=== PATIENT | female | born 1990 | race American Indian/Alaskan Native ===

== ENCOUNTER 2018-08-06 11:00 | Outpatient (CLI) | payer MEDICAID | END 2018-08-06 11:01 | disposition home or self-care (01) | LOC: SLR 11:00 | PROVIDERS: ATTEND Otolaryngology | DX: G47.30 Sleep apnea, unspecified (principal) | CPT/HCPCS: G0399 ==

== ENCOUNTER 2019-03-03 07:27 | Inpatient (IN) | payer MEDICAID ==
--- NOTE | 2019-02-27 14:21 | Anesthesia Consultation ---
Anesthesia Consult and Med Hx Date of service: 03/03/19 - Airway Anesthetic Teeth Evaluation: Chipped ROM Head & Neck: Adequate Mental/Hyoid Distance: Adequate Mallampati Class: Class II Intubation Access Assessment: Good - Pre-Operative Health Status ASA Pre-Surgery Classification: ASA3 Proposed Anesthetic Plan: General - Pulmonary Hx Smoking: Yes (Hookah occasionally) Hx Asthma: Yes (As a child) Hx Respiratory Symptoms: No - Cardiovascular System Hx Hypertension: No (+Cardiac clearance. +ECHO/ETT) - Central Nervous System Hx Neuromuscular Disorder: Yes (Migraines) Hx Psychiatric Problems: No - Gastrointestinal Hx Gastroesophageal Reflux Disease: Yes - Other Systems Hx Alcohol Use: Yes (Occas) Hx Cancer: No
[~2019-03-03 07:27] MED LIST: ANCEF/STERILE WATER 2 GM/20 ML 2 GM/20 ML SYRINGE IV NR; APRESOLINE IV PRN; FLAGYL 500 MG/100 ML 500 MG/100 ML BAG IV NR; LOVENOX SUB-Q NR; MORPHINE IV PRN; NORCO PO PRN; TRANSDERM-SCOP TD SCH; ZOFRAN IV PRN
--- NOTE | 2019-03-03 07:40 | Anesthesia Day of Surgery ---
Anesthesia Day of Surgery - Day of Surgery Patient Examined: Yes Patient H&P Reviewed: Yes Patient is NPO: Yes
[2019-03-03] MEDS ORDERED: VERSED IV NR (08:00)
[2019-03-03] MEDS ORDERED: NACL BACTERIOSTATIC INFILTRATI ONE (08:08)
[2019-03-03] MEDS: LACTATED RINGERS 1,000 ML IV SCH ×2 (08:25→21:12)
[2019-03-03] MEDS ORDERED: TYLENOL PO NR (08:30)
[2019-03-03] MEDS ORDERED: SUBLIMAZE IV PRN (08:30)
[2019-03-03] MEDS ORDERED: ZOFRAN IV PRN (08:30)
[2019-03-03] MEDS ORDERED: NEURONTIN PO NR (08:30)
[2019-03-03] MEDS ORDERED: DILAUDID IV PRN (08:30)
[2019-03-03] MEDS ORDERED: MARCAINE-EPI 0.5%-1:200,000 INFILTRATI ONE ×2 (10:27→11:26)
[2019-03-03] MEDS ORDERED: XYLOCAINE 1% 20 mL ONE (10:27)
[2019-03-03] MEDS ORDERED: DIPRIVAN 10 MG/ML IV ONE (10:28)
[2019-03-03] MEDS ORDERED: XYLOCAINE MPF 2% ONE (10:28)
[2019-03-03] MEDS ORDERED: ZEMURON IV ONE (10:28)
[2019-03-03] MEDS ORDERED: DILAUDID ONE (10:28)
[2019-03-03] MEDS ORDERED: XYLOCAINE 1% 20 mL INFILTRATI ONE (11:26)
[2019-03-03] MEDS ORDERED: NACL 0.9% IR ONE ×2 (11:27)
[2019-03-03] MEDS ORDERED: BLOXIVERZ ONE (11:51)
[2019-03-03] MEDS ORDERED: DECADRON ONE (11:51)
[2019-03-03] MEDS ORDERED: ROBINUL ONE (11:51)
[2019-03-03] MEDS ORDERED: ZOFRAN ONE (11:52)
[2019-03-03] MEDS: TORADOL IV SCH ×2 (12:20→18:15)
[2019-03-03 14:18] LABS: Basophils % (Auto) 0.2 % (0.0-1.8); Eosinophils # (Auto) 0.1 K/mm3 (0.0-0.4); Eosinophils % (Auto) 0.6 % (0.0-4.3); Hematocrit 36.9 % (30.3-42.9); Hemoglobin 11.9 gm/dl (10.1-14.3); Lymphocytes # (Auto) 1.1 K/mm3 (1.2-5.4); Lymphocytes % (Auto) 10.3 % (13.4-35.0); Mean Corpuscular HGB Conc 32 % (30-34); Mean Corpuscular Volume 84 fl (79-97); Monocytes # (Auto) 0.2 K/mm3 (0.0-0.8); Monocytes % (Auto) 2.3 % (0.0-7.3); Platelet Count 242 K/mm3 (140-440); Red Cell Distribution Width 13.4 % (13.2-15.2)
[2019-03-03 14:32] LABS: Alanine Aminotransferase 37 units/L (7-56); Albumin 2.7 g/dL (3.9-5); BUN/Creatinine Ratio 10; Blood Urea Nitrogen 7 mg/dL (7-17); Hemolysis Index 23
[2019-03-03] MEDS: DILAUDID IV PRN ×2 (15:29→21:12)
[2019-03-03] MEDS: MYLICON PO PRN (15:37)
[2019-03-03] MEDS: REGLAN IV PRN (21:12)
[2019-03-04] MEDS: TORADOL IV SCH ×3 (01:11→11:54)
[2019-03-04] MEDS: DILAUDID IV PRN (04:40)
[2019-03-04] MEDS: REGLAN IV PRN (04:40)
[2019-03-04] MEDS: MYLICON PO PRN ×2 (04:40→12:01)
[2019-03-04] MEDS ORDERED: LOVENOX SUB-Q SCH ×2 (10:00)
[2019-03-04] MEDS: LACTATED RINGERS 1,000 ML IV SCH (10:05)
[2019-03-04 10:34] LABS: Basophils % (Auto) 0.3 % (0.0-1.8); Hematocrit 36.3 % (30.3-42.9); Hemoglobin 11.8 gm/dl (10.1-14.3); Lymphocytes # (Auto) 1.1 K/mm3 (1.2-5.4); Lymphocytes % (Auto) 23.2 % (13.4-35.0); Mean Corpuscular HGB Conc 33 % (30-34); Mean Corpuscular Volume 84 fl (79-97); Monocytes # (Auto) 0.4 K/mm3 (0.0-0.8); Monocytes % (Auto) 7.9 % (0.0-7.3); Platelet Count 249 K/mm3 (140-440); Red Blood Count 4.31 M/mm3 (3.65-5.03); Red Cell Distribution Width 13.4 % (13.2-15.2)
--- NOTE | 2019-03-04 10:51 | Discharge Summary ---
Providers - Providers Date of Admission: 03/03/19 07:27 Date of discharge: 03/04/19 Attending physician: MARKO GREENFIELD 03/02/19 22:17 Physical Therapy Evaluation and Treat [CONS] Routine Comment: Reason For Exam: early ambulation Primary care physician: REJI MATT Hospitalization Condition: Good Procedures: Lap sleeve gastrectomy Disposition: - TO HOME OR SELFCARE Core Measure Documentation - Palliative Care Palliative Care/ Comfort Measures: Not Applicable - Core Measures Any of the following diagnoses?: none Exam - Constitutional Vitals: Temp Pulse Resp BP Pulse Ox 97.9 F 18 L 18 152/87 100 03/04/19 08:00 03/04/19 08:00 03/04/19 08:00 03/04/19 10:05 03/04/19 09:31 Plan Activity: no restrictions Weight Bearing Status: Full Weight Bearing Diet: clear liquids Wound: keep clean and dry Follow up with: DIANA AVELAR FNP [Primary Care Provider] - 7 Days MARKO GREENFIELD MD [Staff Physician] - 14 Days
[2019-03-04 11:16] LABS: Alanine Aminotransferase 27 units/L (7-56); Albumin 2.8 g/dL (3.9-5); BUN/Creatinine Ratio 11; Blood Urea Nitrogen 9 mg/dL (7-17); Calcium 8.8 mg/dL (8.4-10.2); Hemolysis Index 6
[2019-03-04 12:13] VITALS: BP 146/81
== END 2019-03-04 14:00 | disposition home or self-care (01) | DRG 621 ==
LOC: 3A 07:27 → 3B-SURG 12:49
PROVIDERS: ADMIT Specialist; ATTEND Specialist
PROC: 0DB64Z3 Excision of Stomach, Percutaneous Endoscopic Approach, Vertical (ICD-10-PCS; principal; 2019-03-03)
PROC: 0BQT4ZZ Repair Diaphragm, Percutaneous Endoscopic Approach (ICD-10-PCS; 2019-03-03)
DX: E66.01 Morbid (severe) obesity due to excess calories (principal); F17.290 Nicotine dependence, other tobacco product, uncomplicated; J45.909 Unspecified asthma, uncomplicated; G43.909 Migraine, unspecified, not intractable, without status migrainosus; K21.9 Gastro-esophageal reflux disease without esophagitis; Z68.42 Body mass index [BMI] 45.0-49.9, adult
CPT/HCPCS: 36415; 80053; 81025; 85025; 88307; G0378; A4217; J0360; J0690; J1100; J1170; J1650; J1885; J2250; J2405; J2704; J2710; J2765; J7120